=== PATIENT | male | born 1935 | race Caucasian/White ===

== ENCOUNTER 2016-05-09 01:53 | Emergency (ER) | payer OTHER ==
[~2016-05-09] VITALS: Ht 180.3 cm; Wt 98.1 kg
[2016-05-09 01:59] VITALS: BP 158/91; PULSE 56; RESP 16; TEMP 97.8; O2SAT 95
--- NOTE | 2016-05-09 02:43 | PD ---
HPI Chief Complaint: Flank/Kidney Pain Time Seen by Provider: 02:39 Travel History International Travel<30 days: No Contact w/Intl Traveler<30days: No Traveled to known affect area: No History of Present Illness HPI 80-year-old male presents to the emergency department for evaluation of left flank pain since sudden onset at 10 PM. Patient states pain radiates to the left abdomen. Patient states symptoms other same as his kidney stone 25 years ago. Patient's had nausea without vomiting. Patient denies chest pain shortness of breath or generalized abdominal pain. Patient denies any right- sided back pain. The patient has had no fever or chills. Patient does have history of hypertension and dyslipidemia. [facility] Past Medical History Narrative Medical Hypertension dyslipidemia and kidney stones no tobacco use nursing notes reviewed Hx Anticoagulant Therapy: Yes (asa) High Cholesterol: Yes Kidney Stones: Yes Musculoskeletal: Yes (r knee surgery) Tetanus Vaccination: Unknown Influenza Vaccination: Yes Past Surgical History Tonsillectomy: Yes Social History Alcohol Use: Yes (1-2 drinks) Tobacco Use: No Substance Use: No Allergies-Medications (Allergen,Severity, Reaction): Coded Allergies: No Known Allergies (Unverified , 05/09/16) Reported Meds & Prescriptions Reported Meds & Active Scripts Active Zofran Odt (Ondansetron Odt) 4 Mg Tab 4 Mg SL Q6HR PRN Flomax (Tamsulosin HCl) 0.4 Mg Cap 0.4 Mg PO HS Percocet (Oxycodone-Acetaminophen) 5-325 mg Tab 1 Tab PO Q6H PRN Reported Co Q 10 (Coenzyme Q10 (Ubidecarenone)) 100 Mg Cap 100 Cap PO DAILY Fenofibrate 40 Mg Tab 40 Mg PO DAILY Aspirin 81 Mg Tabdr 81 Mg PO DAILY Atorvastatin (Atorvastatin Calcium) 20 Mg Tab 40 Mg PO HS Review of Systems Except as stated in HPI: all other systems reviewed are Neg Physical Exam Narrative GENERAL: Well-developed well-nourished male in no acute distress no respiratory distress SKIN: Warm and dry. HEAD: Normocephalic. EYES: No scleral icterus. No injection or drainage. NECK: Supple, trachea midline. No JVD or lymphadenopathy. CARDIOVASCULAR: Regular rate and rhythm without murmurs, gallops, or rubs. RESPIRATORY: Breath sounds equal bilaterally. No accessory muscle use. GASTROINTESTINAL: Abdomen soft, non-tender, nondistended. MUSCULOSKELETAL: No cyanosis, or edema. BACK: Nontender without obvious deformity. Left-sided CVA tenderness. Data Data Last Documented VS Vital Signs Date Time Temp Pulse Resp B/P Pulse Ox O2 Delivery O2 Flow Rate FiO2 05/09/16 01:59 97.8 56 16 158/91 95 Room Air Orders Complete Blood Count With Diff (05/09/16 02:40) Basic Metabolic Panel (Bmp) (05/09/16 02:40) Urinalysis - C+S If Indicated (05/09/16 02:40) Ct Abd/Pel W/O Iv Contrast (05/09/16 02:40) Ecg Monitoring (05/09/16 02:40) Iv Access Insert/Monitor (05/09/16 02:40) Ondansetron Inj (Zofran Inj) (05/09/16 02:45) Sodium Chloride 0.9% Flush (Ns Flush) (05/09/16 02:45) Sodium Chlor 0.9% 1000 Ml Inj (Ns 1000 M (05/09/16 02:45) Hydromorphone Pf Inj (Dilaudid Pf Inj) (05/09/16 02:45) Tamsulosin (Flomax) (05/09/16 04:00) Labs Laboratory Tests Test 05/09/16 05/09/16 02:40 02:49 Urine Color BROWN Urine Turbidity CLOUDY Urine pH 5.0 Urine Specific [place] 1.027 Urine Protein 30 mg/dL Urine Glucose (UA) NEG mg/dL Urine Ketones NEG mg/dL Urine Occult Blood LARGE Urine Nitrite NEG Urine Bilirubin NEG Urine Leukocyte Esterase NEG Urine RBC 50-99 /hpf Urine WBC 0-2 /hpf Urine Squamous Epithelial 0-5 /hpf Cells Urine Bacteria FEW /hpf Microscopic Urinalysis Comment CULT NOT INDICATED White Blood Count 13.8 TH/MM3 Red Blood Count 5.65 MIL/MM3 Hemoglobin 16.0 GM/DL Hematocrit 50.2 % Mean Corpuscular Volume 89.0 FL Mean Corpuscular Hemoglobin 28.4 PG Mean Corpuscular Hemoglobin 31.9 % Concent Red Cell Distribution Width 15.0 % Platelet Count 252 TH/MM3 Mean Platelet Volume 8.6 FL Neutrophils (%) (Auto) 75.6 % Lymphocytes (%) (Auto) 15.5 % Monocytes (%) (Auto) 7.4 % Eosinophils (%) (Auto) 0.5 % Basophils (%) (Auto) 1.0 % Neutrophils # (Auto) 10.5 TH/MM3 Lymphocytes # (Auto) 2.1 TH/MM3 Monocytes # (Auto) 1.0 TH/MM3 Eosinophils # (Auto) 0.1 TH/MM3 Basophils # (Auto) 0.1 TH/MM3 CBC Comment DIFF FINAL Differential Comment Sodium Level 141 MEQ/L Potassium Level 4.0 MEQ/L Chloride Level 105 MEQ/L Carbon Dioxide Level 25.9 MEQ/L Anion Gap 10 MEQ/L Blood Urea Nitrogen 30 MG/DL Creatinine 1.70 MG/DL Estimat Glomerular Filtration 39 ML/MIN Rate Random Glucose 159 MG/DL Calcium Level 9.2 MG/DL [facility] Medical Decision Making Medical Screen Exam Complete: Yes Emergency Medical Condition: Yes Medical Record Reviewed: Yes Interpretation(s) CT abd/pel: CONCLUSION: 5 mm stone at the left ureteropelvic junction with moderate hydronephrosis. Oli Sauer MD on May 09, 2016 at 3:26 Board Certified Radiologist. This report was verified electronically. Differential Diagnosis Flank pain, renal colic, abdominal aortic aneurysm, dissection, UTI, pyelonephritis, diverticulitis Narrative Course Patient placed on cardiac rehabilitation program director IV access obtained specimens collected and sent for resulting patient administered normal saline 125 cc per hour and Zofran 4 mg IV and Dilaudid 0.5 mg IV; CT imaging study ordered @3:55 AM patient is pain-free is aware of imaging studies consistent with obstructing 5 mm stone on the left no evidence for infection patient will be discharged with prescription for Percocet and Zofran and Flomax first dose of Flomax administered in the emergency department. Patient offered name of on- call urologist and shares the yard he has a urologist Dr. Salvador and he is encouraged to follow-up with his primary urologist and call office in a.m. to schedule appointment Diagnosis Primary Impression: Renal colic on left side Additional Impressions: Ureterolithiasis Renal insufficiency Referrals: Urologist call for appointment Patient Instructions: Narcotic given in the ED, General Instructions Additional Instructions: Strain urine Increase fluid hydration Take medication as prescribed as needed for pain Follow-up with urologist call office in a urologist on-call Dr. Escobedo or your urologist Dr Salvador Return to the emergency department for any concerns or change in condition Med/Other Pt SpecificInfo: Prescription(s) given Scripts Ondansetron Odt (Zofran Odt)4 Mg Tab4 Mg SL Q6HR PRN (Nausea/Vomiting) #10 TAB Ref 0 Prov:Basia Hendricks MD 05/09/16 Tamsulosin (Flomax)0.4 Mg Cap0.4 Mg PO HS #7 CAP Ref 0 Prov:Basia Hendricks MD 05/09/16 Oxycodone-Acetaminophen (Percocet)5-325 mg Tab1 Tab PO Q6H PRN (PAIN) #12 TAB Ref 0 Prov:Basia Hendricks MD 05/09/16 Disposition: 01 DISCHARGE HOME Condition: Stable Basia Hendricks MD May 09, 2016 02:43
[2016-05-09] MEDS ORDERED: HYDROmorphone HCL PF 1 MG/ML VIAL IV PUSH ONE (02:45)
[2016-05-09] MEDS ORDERED: SODIUM CHLOR 0.9% 1000 ML INJ 1,000 ML IV SCH (02:45)
[2016-05-09] MEDS ORDERED: SODIUM CHLORIDE 0.9% FLUSH 5 ML FLUSH IVF PRN (02:45)
[2016-05-09] MEDS ORDERED: ONDANSETRON HCL 4 MG/2 ML VIAL IVP ONE (02:45)
[2016-05-09 02:57] LABS: BLOOD, URINE LARGE (NEG); GLUCOSE,URINE NEG (NEG); KETONE, URINE NEG (NEG); NITRITE,URINE NEG (NEG)
[2016-05-09 02:59] LABS: AUTOMATED NEUTROPHIL # 10.5 TH/MM3 (1.8-7.7); BASOPHIL # 0.1 TH/MM3 (0-0.2); EOSINOPHIL # 0.1 TH/MM3 (0-0.4); EOSINOPHIL % 0.5 % (0.0-4.0); HEMATOCRIT 50.2 % (39.0-51.0); LYMPH % 15.5 % (9.0-44.0); LYMPHOCYTE # 2.1 TH/MM3 (1.0-4.8); MEAN CORPUSCULAR HEMOGLOBIN 28.4 PG (27.0-34.0); MEAN CORPUSCULAR HGB CONC 31.9 % (32.0-36.0); MONO % 7.4 % (0.0-8.0); NEUT % 75.6 % (16.0-70.0); PLATELET COUNT 252 TH/MM3 (150-450); RED BLOOD COUNT 5.65 MIL/MM3 (4.50-5.90); WHITE BLOOD COUNT 13.8 TH/MM3 (4.0-11.0)
[2016-05-09 03:00] VITALS: BP 135/83; PULSE 94; RESP 18; O2SAT 94
[2016-05-09 03:00] LABS: HEMO FLAGS DIFF FINAL
[2016-05-09 03:05] LABS: BACTERIA, URINE FEW /hpf; COMMENT (UR) CULT NOT INDICATED; CULTURE IF INDICATED CULT NOT INDICATED; SQUAMOUS EPITHELIAL CELL URINE 0-5 /hpf (0-5); URINE COLOR BROWN (YELLW/STRAW); WBC, URINE 0-2 /hpf (0-5)
[2016-05-09] MEDS ORDERED: CO Q100C9 PO (03:05)
[2016-05-09] MEDS ORDERED: ATOR20TA15 PO (03:05)
[2016-05-09] MEDS ORDERED: FENO1TAB46 PO (03:05)
[2016-05-09] MEDS ORDERED: ASPI1TAB69 PO (03:05)
[2016-05-09 03:09] LABS: BICARBONATE 25.9 MEQ/L (21.0-32.0)
[2016-05-09 03:19] VITALS: RESP 18
--- NOTE | 2016-05-09 03:31 | RADHPO ---
EXAM DATE/TIME: 05/09/2016 02:50 [place] COMPARISON: No previous studies available for comparison. INDICATIONS : Left flank pain today. ORAL CONTRAST: No oral contrast ingested. RADIATION DOSE: 27.62 CTDIvol (mGy) MEDICAL HISTORY : Renal calculi. SURGICAL HISTORY : None. ENCOUNTER: Initial ACUITY: 1 day PAIN SCALE: 4/10 LOCATION: Left flank TECHNIQUE: Volumetric scanning of the abdomen and pelvis was performed. Using automated exposure control and ad justment of the mA and/or kV according to patient size, radiation dose was kept as low as reasonably achievable to obtain optimal diagnostic quality images. FINDINGS: LOWER LUNGS: Minimal scarring or atelectasis in the lung bases. LIVER: Small low densities in the left lobe are likely cysts or hemangiomata. Single calcified gallstone not ed. SPLEEN: Normal size without lesion. PANCREAS: Within normal limits. KIDNEYS: The left kidney is notable for mild swelling, moderate hydronephrosis proximal to a 5 mm stone at the ureteropelvic junction. Mild perinephric fatty tissue edema and fluid. Miniscule nonobstructing ston es in the lower pole collecting system of left kidney. Right kidney is unremarkable. ADRENAL GLANDS: Within normal limits. VASCULAR: There is no aortic aneurysm. BOWEL/MESENTERY: The stomach, small bowel, and colon demonstrate no acute abnormality. There is no free intraperitone al air or fluid. ABDOMINAL WALL: Within normal limits. RETROPERITONEUM: There is no lymphadenopathy. BLADDER: No wall thickening or mass. REPRODUCTIVE: Within normal limits. INGUINAL: There is no lymphadenopathy or hernia. MUSCULOSKELETAL: Within normal limits for patient age. CONCLUSION: 5 mm stone at the left ureteropelvic junction with moderate hydronephrosis. Oli Sauer MD on May 09, 2016 at 3:26 Board Certified Radiologist. This report was verified electronically.
[2016-05-09] MEDS ORDERED: ZOFR4TAB3 SL (03:51)
[2016-05-09] MEDS ORDERED: TAMS5CAP PO (03:51)
[2016-05-09] MEDS ORDERED: PERC5TAB12 PO (03:51)
[2016-05-09] MEDS ORDERED: TAMSULOSIN HCL 0.4 MG CAP PO ONE (04:00)
[2016-05-09 04:22] VITALS: BP 150/80
== END 2016-05-09 04:26 | disposition home or self-care (01) ==
LOC: PHED 01:53
DX: N20.1 Calculus of ureter (principal); N28.9 Disorder of kidney and ureter, unspecified; E78.00 Pure hypercholesterolemia, unspecified; I10 Essential (primary) hypertension; Z87.442 Personal history of urinary calculi
CPT/HCPCS: 74176; 80048; 81001; 85025; 96361; 96374; 96375; 99284; J1170; J2405; J7030

== ENCOUNTER 2018-03-12 07:00 | Observation (INO) ==
--- NOTE | 2018-03-12 07:58 | ED ---
HPI General Chief complaint: Weakness Stated complaint: Pain Time Seen by Provider: 03/12/18 07:39 Source: patient and family Mode of arrival: ambulatory Limitations: no limitations History of Present Illness HPI Narrative: Patient is an 82-year-old male with no past medical history, presents to emergency room with complaints of weakness. Patient reports that for the past few weeks, he has had generalized body aches and muscle weakness. Patient was seen in the emergency room on March 04, 2018 and was told that he had internal shingles to his abdomen. Patient was prescribed Valtrex and was discharged home. Patient reports that since he has been home, he has been compliant with his medications but had has not helped him with his symptoms. Patient reports that all of his muscles feel weak and are crampy. Patient reports that it is even hard for him to ambulate due to this weakness. Patient reports that one month ago, he was up and running around all over the place, reports that now he cannot do that. Patient denies any headache or dizziness, denies any vision changes, denies any chest pain or shortness of breath or even abdominal pain. Patient denies any fevers or chills. Patient reports that his whole body just feels weak and he cannot describe his symptoms other than that. Denies any fall or trauma to the head or neck. Denies any recent travels or trips, no sick contacts at home. Patient reports that his muscle weakness feels similar to when he was taking statins, reports that he is no longer on statins as he has lost over 30 pounds and is currently not on any medications due to his significant weight loss and better eating. Patient with no other complaints at this time. Related Data Home Medications Medication Instructions Recorded Confirmed hydrocodone-acetaminophen 1 tab PO Q6H 03/12/18 03/12/18 Previous Rx's Medication Instructions Recorded valacyclovir [Valtrex] 1,000 mg PO BID 10 Days #20 tab 03/04/18 Allergies Allergy/AdvReac Type Severity Reaction Status Date / Time No Known Allergies Allergy Verified 03/12/18 07:16 Review of Systems ROS: all other systems reviewed are negative [facility] Medical History Medical History Bladder cancer (Acute) Surgical History Surgical History History of ankle surgery (Acute) Hx of knee surgery (Acute) Hx of tonsillectomy (Acute) Social History Social History (Reviewed 03/12/18 @ 08:01 by Sue Roth Substance History: No History of Abuse Second Hand Smoke Exposure: No Smoking Status: Never smoker How Often Do You Have a Drink Containing Alcohol: Never Recent Travel in [facility] within the Last 8 Weeks: No Recent Out of Country Travel within the Last 8 Weeks: No Immunization History Tetanus Immunization: >5 Years Exam Narrative Exam Narrative: GENERAL: Mild distress SKIN: Focused skin assessment warm/dry. HEAD: Atraumatic. Normocephalic. EYES: Pupils equal and round. No scleral icterus. No injection or drainage. ENT: No nasal bleeding or discharge. Mucous membranes pink and moist. NECK: Trachea midline. No JVD. CARDIOVASCULAR: Regular rate and rhythm. No murmur appreciated. RESPIRATORY: No accessory muscle use. Clear to auscultation. Breath sounds equal bilaterally. GASTROINTESTINAL: Abdomen soft, non-tender, nondistended. Hepatic and splenic margins not palpable. MUSCULOSKELETAL: No obvious deformities. No clubbing. No cyanosis. No edema. NEUROLOGICAL: Awake and alert. No obvious cranial nerve deficits. Patient with weakness to the upper as well as lower extremities bilaterally. Normal speech. PSYCHIATRIC: Appropriate mood and affect; insight and judgment normal. Course Initial Documented Vital Signs Temperature 97.9 F 03/12/18 07:05 Pulse Rate 109 H 03/12/18 07:05 Respiratory Rate 20 03/12/18 07:05 Blood Pressure 129/80 03/12/18 07:05 Pulse Oximetry 94 L 03/12/18 07:05 Last Documented Vital Signs Temperature 97.9 F 03/12/18 10:38 Pulse Rate 96 H 03/12/18 10:38 Respiratory Rate 20 03/12/18 10:38 Blood Pressure 162/91 H 03/12/18 10:38 Pulse Oximetry 96 03/12/18 10:38 Medical Decision Making MDM Narrative Medical decision making narrative: During the course of the patients emergency department visit, the patients history, examination, and differential diagnosis were reviewed with the patient. The patient was placed on a lift manager with oximetry and frequent blood pressure monitoring. The patient had an IV access obtained and blood work sent for analysis. The patients laboratory studies were reviewed and remarkable for: WBC 13.6, hemoglobin 14.7, hematocrit 43.6, platelets 320 Sodium 137, potassium 4.3, BUN 17, creatinine 1.07, glucose 94 CT of the head with no acute intracranial abnormalities, mild atrophy. Patient's labs and studies have been reviewed, I do not have a source as to why patient is so weak. Patient's reports that patient is normally very active , she is concerned as he is weak throughout his who body Case reviewed with Dr. Keller who will admit for observation and have neuro consult Medical Screen Exam Complete: Yes Emergency Medical Condition: Yes Medical Records Medical records reviewed: Yes I reviewed the patient's medical records. Lab Data Result diagrams: 03/12/18 08:15 03/12/18 08:15 Lab Results 03/12/18 03/12/18 03/12/18 Range/Units 08:15 08:15 08:15 WBC 13.7 H (4.0-11.0) th/mm3 RBC 4.71 (4.50-5.90) mil/mm3 Hgb 14.7 (13.0-17.0) gm/dL Hct 43.6 (39.0-51.0) % MCV 92.7 (80.0-100.0) fL MCH 31.2 (27.0-34.0) pg MCHC 33.6 (32.0-36.0) % RDW 15.6 (11.6-17.2) % Plt Count 320 (150-450) th/mm3 MPV 7.5 (7.0-11.0) fL Neut % (Auto) 74.7 H (16.0-70.0) % Lymph % (Auto) 12.3 (9.0-44.0) % [place] % (Auto) 12.4 H (0.0-8.0) % Eos % (Auto) 0.3 (0.0-4.0) % Baso % (Auto) 0.3 (0.0-2.0) % Neut # (Auto) 10.2 H (1.8-7.7) th/mm3 Lymph # (Auto) 1.7 (1.0-4.8) th/mm3 [place] # (Auto) 1.7 H (0.0-0.9) th/mm3 Eos # (Auto) 0.0 (0.0-0.4) th/mm3 Baso # (Auto) 0.0 (0.0-0.2) th/mm3 WBC Differential . Differential Comment Auto diff final Sodium 137 (136-145) meq/L Potassium 4.3 (3.5-5.1) meq/L Chloride 102 (98-107) meq/L Carbon Dioxide 26.4 (21.0-32.0) meq/L Anion Gap 9 (5-15) meq/L BUN 17 (7-18) mg/dL Creatinine 1.07 (0.60-1.30) mg/dL Estimated GFR 66 L (>89) mL/min Random Glucose 94 (74-106) mg/dL Lactic Acid (0.4-2.0) mmol/L Calcium 8.9 (8.5-10.1) mg/dL Magnesium 2.3 (1.5-2.5) mg/dL Total Bilirubin 0.6 (0.2-1.0) mg/dL AST 21 (15-37) U/L ALT 41 (12-78) U/L Alkaline Phosphatase 81 (45-117) U/L Total Creatine Kinase 83 (39-308) U/L Troponin I Less than 0.02 L (0.02-0.05) ng/mL B-Natriuretic Peptide 28 (0-100) pg/mL Total Protein 7.6 (6.4-8.2) g/dL Albumin 3.5 (3.4-5.0) g/dL Urine Color (Yellw/Straw) Urine Clarity (Clear) Urine pH (5.0-8.5) Ur Specific [place] (1.002-1.035) Urine Protein (Neg-Trace) mg/dL Urine Glucose (UA) (Negative) mg/dL Urine Ketones (Negative) mg/dL Urine Occult Blood (Negative) Urine Nitrate (Negative) Urine Bilirubin (Negative) Urine Urobilinogen (Less than 2) mg/dL Ur Leukocyte Esterase (Negative) Urine RBC (0-3) /hpf Urine WBC (0-5) /hpf Hyaline Casts (0-3) /lpf Urine Mucus (Occasional) /lpf Micro UA Comment Ur Microscopic Review Urine Culture Comments 03/12/18 03/12/18 Range/Units 08:15 10:00 WBC (4.0-11.0) th/mm3 RBC (4.50-5.90) mil/mm3 Hgb (13.0-17.0) gm/dL Hct (39.0-51.0) % MCV (80.0-100.0) fL MCH (27.0-34.0) pg MCHC (32.0-36.0) % RDW (11.6-17.2) % Plt Count (150-450) th/mm3 MPV (7.0-11.0) fL Neut % (Auto) (16.0-70.0) % Lymph % (Auto) (9.0-44.0) % [place] % (Auto) (0.0-8.0) % Eos % (Auto) (0.0-4.0) % Baso % (Auto) (0.0-2.0) % Neut # (Auto) (1.8-7.7) th/mm3 Lymph # (Auto) (1.0-4.8) th/mm3 [place] # (Auto) (0.0-0.9) th/mm3 Eos # (Auto) (0.0-0.4) th/mm3 Baso # (Auto) (0.0-0.2) th/mm3 WBC Differential Differential Comment Sodium (136-145) meq/L Potassium (3.5-5.1) meq/L Chloride (98-107) meq/L Carbon Dioxide (21.0-32.0) meq/L Anion Gap (5-15) meq/L BUN (7-18) mg/dL Creatinine (0.60-1.30) mg/dL Estimated GFR (>89) mL/min Random Glucose (74-106) mg/dL Lactic Acid 2.3 H (0.4-2.0) mmol/L Calcium (8.5-10.1) mg/dL Magnesium (1.5-2.5) mg/dL Total Bilirubin (0.2-1.0) mg/dL AST (15-37) U/L ALT (12-78) U/L Alkaline Phosphatase (45-117) U/L Total Creatine Kinase (39-308) U/L Troponin I (0.02-0.05) ng/mL B-Natriuretic Peptide (0-100) pg/mL Total Protein (6.4-8.2) g/dL Albumin (3.4-5.0) g/dL Urine Color Yellow (Yellw/Straw) Urine Clarity Clear (Clear) Urine pH 6.0 (5.0-8.5) Ur Specific [place] 1.015 (1.002-1.035) Urine Protein Negative (Neg-Trace) mg/dL Urine Glucose (UA) Negative (Negative) mg/dL Urine Ketones Negative (Negative) mg/dL Urine Occult Blood Negative (Negative) Urine Nitrate Negative (Negative) Urine Bilirubin Negative (Negative) Urine Urobilinogen Less than 2 (Less than 2) mg/dL Ur Leukocyte Esterase Negative (Negative) Urine RBC Less than 1 (0-3) /hpf Urine WBC Less than 1 (0-5) /hpf Hyaline Casts 9 (0-3) /lpf Urine Mucus Few H (Occasional) /lpf Micro UA Comment Culture not ind Ur Microscopic Review Not Reportable Urine Culture Comments Culture not ind Imaging Data Radiologist's impression: Chest X-Ray 03/12/18 07:56 CONCLUSION: No acute cardiopulmonary process. Head CT 03/12/18 07:56 CONCLUSION: 1. No acute intracranial abnormality. 2. Mild atrophy. . ECG Data EKG Prior to Arrival: No Attestation: I personally reviewed and interpreted this ECG as follows: Interpretation: EKG at 0828: NSR at 0828: NSR at 92bpm, qt/qtc: 337/387, no acute st or t wave changes Discharge Plan Discharge Disposition Patient Disposition: 30 Still Patient Discharge Condition Condition: Stable Discharge Details Diagnosis: Generalized weakness Physicians Team ED Provider: Sue Harris Primary Care Provider: Primary Care Anne Fry Rxs /Orders / Referrals /Forms Prescriptions: No Action valacyclovir [Valtrex] 1 gram tablet 1,000 mg PO BID 10 Days Qty: 20 RF: 0 hydrocodone-acetaminophen 5-325 mg Tablet 1 tab PO Q6H RF: 0 Status ED Status: With Doctor
--- NOTE | 2018-03-12 08:22 | CT ---
EXAM DATE: 03/12/2018 8:15 AM EST AGE/SEX: 82 years / Male INDICATIONS: Patient complains of general weakness. CLINICAL DATA: This is the patient's initial encounter. Patient reports that signs and symptoms have been present for 1 day and indicates a pain score of 0/10. MEDICAL/SURGICAL HISTORY: Renal calculi. Carcinoma, bladder. None. RADIATION DOSE: 56.35 CTDI (mGy) COMPARISON: No prior exams available for comparison. TECHNIQUE: CT of the head without contrast. Using automated exposure control and adjustment of the mA and/or kV according to patient size, radiation dose was kept as low as reasonably achievable to ob tain optimal diagnostic quality images. DICOM format image data is available electronically for revi ew and comparison. FINDINGS: Cerebrum: The ventricles are normal for age. The cortical sulci are mildly widened. No evidence of m idline shift, mass lesion, hemorrhage or acute infarction. No extraaxial fluid collections are seen. Posterior Fossa: The cerebellum and brainstem are intact. The 4th ventricle is midline. The cerebe llopontine angle is unremarkable. Extracranial: The visualized portion of the orbits is intact. Skull: The calvaria is intact. No evidence of skull fracture. CONCLUSION: 1. No acute intracranial abnormality. 2. Mild atrophy. . Electronically signed by: Oli Ortiz MD 03/12/2018 8:21 AM EST
[2018-03-12 08:49] LABS: Baso % (Auto) 0.3 % (0.0-2.0); Eos % (Auto) 0.3 % (0.0-4.0); Hematocrit 43.6 % (39.0-51.0); Hemoglobin 14.7 gm/dL (13.0-17.0); Lymph # (Auto) 1.7 th/mm3 (1.0-4.8); Lymph % (Auto) 12.3 % (9.0-44.0); Mean Corpuscular HGB Conc 33.6 % (32.0-36.0); Mean Corpuscular Hemoglobin 31.2 pg (27.0-34.0); Mean Corpuscular Volume 92.7 fL (80.0-100.0); Mean Platelet Volume 7.5 fL (7.0-11.0); Mono # (Auto) 1.7 th/mm3 (0.0-0.9); Mono % (Auto) 12.4 % (0.0-8.0); Neut # (Auto) 10.2 th/mm3 (1.8-7.7); Neut % (Auto) 74.7 % (16.0-70.0); Platelet Count 320 th/mm3 (150-450); Red Blood Count 4.71 mil/mm3 (4.50-5.90); Red Cell Distribution Width 15.6 % (11.6-17.2); White Blood Count 13.7 th/mm3 (4.0-11.0)
[2018-03-12 09:10] LABS: Albumin 3.5 g/dL (3.4-5.0); Anion Gap 9 meq/L (5-15); Aspartate Aminotransferase 21 U/L (15-37); Blood Urea Nitrogen 17 mg/dL (7-18); Calcium 8.9 mg/dL (8.5-10.1); Carbon Dioxide 26.4 meq/L (21.0-32.0); Chloride 102 meq/L (98-107); Glomerular Filtration Rate 66 mL/min (>89); Glucose,Random 94 mg/dL (74-106); Magnesium 2.3 mg/dL (1.5-2.5); Potassium 4.3 meq/L (3.5-5.1); Sodium 137 meq/L (136-145)
[2018-03-12 09:11] LABS: Alanine Aminotransferase 41 U/L (12-78)
[2018-03-12 09:15] LABS: Alkaline Phosphatase 81 U/L (45-117); Total Protein 7.6 g/dL (6.4-8.2)
[2018-03-12] MEDS ORDERED: Sod Chloride 0.9% Inj 1,000 ML IV.SIG SCH (09:30)
[2018-03-12 09:31] LABS: Creatine Kinase 83 U/L (39-308)
--- NOTE | 2018-03-12 10:02 | XR ---
EXAM DATE: 03/12/2018 9:56 AM EST AGE/SEX: 82 years / Male INDICATIONS: Weakness. Short of breath. CLINICAL DATA: This is the patient's subsequent encounter. Patient reports that signs and symptoms h ave been present for 3 days and indicates a pain score of 4/10. MEDICAL/SURGICAL HISTORY: None. None. COMPARISON: [facility], CHEST 1V SINGLE AP, 03/04/2018. . FINDINGS: A single AP view of the chest demonstrates the lungs to be symmetrically aerated without evidence of mass, infiltrate or effusion. The cardiomediastinal contours are unremarkable. Osseous structures a re intact. CONCLUSION: No acute cardiopulmonary process. Electronically signed by: Oli Ortiz MD 03/12/2018 10:00 AM EST
[2018-03-12 10:17] LABS: Bilirubin,Urine Negative (Negative); Clarity,Urine Clear (Clear); Color,Urine Yellow (Yellw/Straw); Glucose,Urine (UA) Negative (Negative); Hyaline Casts,Urine 9 /lpf (0-3); Leukocyte Esterase,Urine Negative (Negative); Mucus,Urine Few /lpf (Occasional); Nitrite,Urine Negative (Negative); Specific Gravity,Urine 1.015 (1.002-1.035)
[2018-03-12] MEDS ORDERED: Acetaminophen 325 MG Tablet PO PRN (11:20)
[2018-03-12] MEDS ORDERED: Bisacodyl 10 MG Supp RECTAL PRN (11:20)
[2018-03-12] MEDS ORDERED: Gadobutrol PF 10 MMOL/10 ML Vial (for RAD) IV.SIG ONE (12:36)
--- NOTE | 2018-03-12 13:02 | MR ---
EXAM DATE: 03/12/2018 12:54 PM EST AGE/SEX: 82 years / Male INDICATIONS: Unsteady gait. CLINICAL DATA: This is the patient's initial encounter. Patient reports that signs and symptoms have been present for 1 week and indicates a pain score of 5/10. MEDICAL/SURGICAL HISTORY: Carcinoma, bladder. Tonsillectomy. Right knee sx, and Left ankle sx. COMPARISON: [facility], CT HEAD W/O CONTRAST, 03/12/2018. . TECHNIQUE: Multiplanar, multisequence examination of the brain was performed without and with 8 ml Ga davist (gadobutrol) contrast as a single exam dose. FINDINGS: Cerebrum: The ventricles are normal for age. The cortical sulci are mildly widened. No evidence of midline shift, mass lesion, hemorrhage or acute infarction. No extraaxial fluid collections are seen . The pituitary gland and suprasellar cistern are normal in configuration. White Matter: There are a few scattered punctate areas of increased signal in the cerebral white mat ter. Posterior Fossa: The cerebellum and brainstem are intact. The 4th ventricle is midline. The cerebel lopontine angle is unremarkable. The cerebellar tonsils are normal in position. Diffusion Imaging: No focal areas of restricted diffusion are seen. No evidence of acute infarction . Extracranial: The visualized portions of the orbits and paranasal sinuses are unremarkable. Post Contrast: No abnormal areas of parenchymal or dural enhancement. No evidence of blood-brain ba rrier breakdown. CONCLUSION: 1. No acute intracranial abnormality. 2. Mild atrophy. 3. Minimal scattered punctate areas of increased signal in the cerebral white matter likely represen t small foci of demyelination. Electronically signed by: Oli Ortiz MD 03/12/2018 1:00 PM EST
[2018-03-12 17:43] LABS: Free T4 (Free Thyroxine) 1.3 ng/dL (0.76-1.46); Thyroid Stimulating Hormone 1.05 uIU/mL (0.358-3.740)
--- NOTE | 2018-03-12 18:02 | P.HP ---
History of Present Illness Service: Hospitalist Primary Care Physician: No Primary Care Physician Chief Complaint: Weakness History of Present Illness: Patient is an 82-year-old male with no significant past medical history. He presents to the emergency room today with a complaint of increasing weakness and generalized pain. He reports that he has had generalized body aches and muscle weakness for several weeks. He was seen in the emergency room 03/04/18 and diagnosed with shingles and sent home with Valtrex. Patient reports that he has been taking the medication since getting home however he has had increasing muscle pain and weakness since then. He has also tried oxycodone however it does not improve the pain. Tells me that many years ago he was put on a statin and that he had similar aches and pains which resolved after stopping the statin. He no longer takes statins as he deliberately lost over 30 pounds and improved his diet making them unnecessary. No chest pain or shortness of breath. No fever or chills. No nausea vomiting or diarrhea. He has had normal appetite. Denies any recent travel. Denies any known tick bites. No history of autoimmune disease. No falls or head injury. Prior to current weakness he had normal gait and was quite vigorous per his report. - Diagnosis (1) Joint pain (2) Generalized weakness Review of Systems All other systems reviewed negative except as stated in HPI PMFSH - History History Provided By: Patient - Medical History Medical History: Medical History (Last Reviewed 03/12/18 @ 17:44 by NATHANIEL Luna) Bladder cancer - Surgical History Surgical History: Surgical History (Last Reviewed 03/12/18 @ 17:44 by NATHANIEL Luna) History of ankle surgery Hx of knee surgery Hx of tonsillectomy - Family History Family History: Family History (Last Updated 03/12/18 @ 17:45 by NATHANIEL Luna) Other Family history non-contributory - Social History I have reviewed the patient's Social History: Yes - Tobacco History Second Hand Smoke Exposure: No Tobacco Use In Past 30 Days: No (quit 40 years ago) Smoking Status: Former smoker - Alcohol History How Often Do You Have a Drink Containing Alcohol: 4 or more times a week - Substance Use History Substance History: No History of Abuse - Travel History Recent Travel in the [place] Within the Last 8 Weeks: No Recent Travel Out of the Country Within the Last 8 Weeks: No - Immunization History Tetanus Immunization: >5 Years Medications and Allergies Active Medications: Active Medications Acetaminophen (Tylenol) 650 mg PO Q4H PRN PRN Reason: Temp > 100.4 Hydrocodone Bitart/Acetaminophen ([place] 5/325) 1 tab PO Q6H [facility] Al Hydroxide/Mg Hydroxide (Milk Of Magnesia Liq) 30 ml PO Q12H PRN PRN Reason: Mild Constipation Bisacodyl (Dulcolax Supp) 10 mg RECTAL DAILY PRN PRN Reason: SEVERE CONSITIPATION Lactulose (Lactulose Liq) 30 ml PO DAILY PRN PRN Reason: SEVERE CONSITIPATION Ondansetron HCl (Zofran Inj) 4 mg IV.PUSH Q6H PRN PRN Reason: NAUSEA OR VOMITING Sennosides (Senokot) 17.2 mg PO Q12H PRN PRN Reason: Moderate Constipation Sodium Chloride (Ns Flush) 2 ml IV.FLUSH PRN PRN PRN Reason: FLUSH AFTER USING IV ACCESS Last Admin: 03/12/18 08:25 Dose: 2 ml Valacyclovir HCl (Valtrex) 1,000 mg PO BID [facility] Allergies Allergy/AdvReac Type Severity Reaction Status Date / Time No Known Allergies Allergy Verified 03/12/18 07:16 Home Medications Medication Instructions Recorded Confirmed Type hydrocodone-acetaminophen 1 tab PO Q6H 03/12/18 03/12/18 History Exam Vital signs: Vital Signs 03/12/18 07:05 03/12/18 07:56 03/12/18 10:38 Temperature 97.9 F 97.8 F 97.9 F Pulse Rate 109 H 93 H 96 H Respiratory Rate 20 17 20 Blood Pressure 129/80 142/84 H 162/91 H Pulse Oximetry 94 L 98 96 03/12/18 13:00 03/12/18 15:16 Temperature 97.8 F 98.5 F Pulse Rate 86 100 H Respiratory Rate 16 18 Blood Pressure 124/77 153/79 H Pulse Oximetry 99 95 Intake & Output 03/11/18 03/12/18 03/12/18 18:59 06:59 18:59 Intake Total 1000 / 1000 Balance 1000 / 1000 Weight 81.647 kg Intake: IV 1000 / 1000 NS Inj 1,000 ML @ 1000 mls/hr 1000 / 1000 IV.SIG BOLUS [facility] Rx#:[id number] Other: Weight On Admission 81.647 kg Narrative: GENERAL: Well-nourished, well-developed adult male in no obvious distress. SKIN: Warm and dry. HEAD: Atraumatic. Normocephalic. CARDIOVASCULAR: Regular rate and rhythm. RESPIRATORY: No accessory muscle use. Clear to auscultation. Breath sounds equal bilaterally. GASTROINTESTINAL: Abdomen soft, non-tender, non-distended. Positive bowel sounds. MUSCULOSKELETAL: Extremities without clubbing, cyanosis, or edema. No obvious deformities. NEUROLOGICAL: Awake and alert. No obvious cranial nerve deficits. 5/5 bilateral lower extremities. 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 No tremor. normal speech. PSYCHIATRIC: Appropriate mood and affect; insight and judgment good. Results - Labs CBC & Chem 7: 03/12/18 08:15 03/12/18 08:15 Labs: Laboratory Results - last 24 hr 03/12/18 03/12/18 03/12/18 08:15 08:15 08:15 WBC 13.7 H RBC 4.71 Hgb 14.7 Hct 43.6 MCV 92.7 MCH 31.2 MCHC 33.6 RDW 15.6 Plt Count 320 MPV 7.5 Neut % (Auto) 74.7 H Lymph % (Auto) 12.3 [place] % (Auto) 12.4 H Eos % (Auto) 0.3 Baso % (Auto) 0.3 Neut # (Auto) 10.2 H Lymph # (Auto) 1.7 [place] # (Auto) 1.7 H Eos # (Auto) 0.0 Baso # (Auto) 0.0 WBC Differential . Differential Comment Auto diff final Sodium 137 Potassium 4.3 Chloride 102 Carbon Dioxide 26.4 Anion Gap 9 BUN 17 Creatinine 1.07 Estimated GFR 66 L Random Glucose 94 Lactic Acid Calcium 8.9 Magnesium 2.3 Total Bilirubin 0.6 AST 21 ALT 41 Alkaline Phosphatase 81 Total Creatine Kinase 83 Troponin I Less than 0.02 L B-Natriuretic Peptide 28 Total Protein 7.6 Albumin 3.5 Vitamin B12 TSH Free T4 Urine Color Urine Clarity Urine pH Ur Specific [place] Urine Protein Urine Glucose (UA) Urine Ketones Urine Occult Blood Urine Nitrate Urine Bilirubin Urine Urobilinogen Ur Leukocyte Esterase Urine RBC Urine WBC Hyaline Casts Urine Mucus Micro UA Comment Ur Microscopic Review Urine Culture Comments 03/12/18 03/12/18 03/12/18 08:15 08:15 10:00 WBC RBC Hgb Hct MCV MCH MCHC RDW Plt Count MPV Neut % (Auto) Lymph % (Auto) [place] % (Auto) Eos % (Auto) Baso % (Auto) Neut # (Auto) Lymph # (Auto) [place] # (Auto) Eos # (Auto) Baso # (Auto) WBC Differential Differential Comment Sodium Potassium Chloride Carbon Dioxide Anion Gap BUN Creatinine Estimated GFR Random Glucose Lactic Acid 2.3 H Calcium Magnesium Total Bilirubin AST ALT Alkaline Phosphatase Total Creatine Kinase Troponin I B-Natriuretic Peptide Total Protein Albumin Vitamin B12 330 TSH 1.050 Free T4 1.30 Urine Color Yellow Urine Clarity Clear Urine pH 6.0 Ur Specific [place] 1.015 Urine Protein Negative Urine Glucose (UA) Negative Urine Ketones Negative Urine Occult Blood Negative Urine Nitrate Negative Urine Bilirubin Negative Urine Urobilinogen Less than 2 Ur Leukocyte Esterase Negative Urine RBC Less than 1 Urine WBC Less than 1 Hyaline Casts 9 Urine Mucus Few H Micro UA Comment Culture not ind Ur Microscopic Review Not Reportable Urine Culture Comments Culture not ind - Imaging Impressions Head MRI 03/12/18 00:00 CONCLUSION: 1. No acute intracranial abnormality. 2. Mild atrophy. 3. Minimal scattered punctate areas of increased signal in the cerebral white matter likely represent small foci of demyelination. Chest X-Ray 03/12/18 07:56 CONCLUSION: No acute cardiopulmonary process. Head CT 03/12/18 07:56 CONCLUSION: 1. No acute intracranial abnormality. 2. Mild atrophy. . Caprini VTE Risk Assessment Caprini VTE Risk Assessment: No/Low Risk (score <= 1) Caprini Risk Assessment Model: Point Value = 1 Point Value = 2 Point Value = 3 Point Value = 5 Age 41-60 Minor surgery BMI > 25 kg/m2 Swollen legs Varicose veins or History of unexplained or recurrent spontaneous Oral contraceptives or hormone replacement Sepsis (< 1 month) Serious lung disease, including pneumonia (< 1 month) Abnormal pulmonary function Acute myocardial infarction Congestive heart failure (< 1 month) History of inflammatory bowel disease Medical patient at bed rest Age 61-74 Arthroscopic surgery Major open surgery (> 45 min) Laparoscopic surgery (> 45 min) Malignancy Confined to bed (> 72 hours) Immobilizing plaster cast Central venous access Age >= 75 History of VTE Family history of VTE Factor V Leiden Prothrombin [id number] Lupus anticoagulant Anticardiolipin antibodies Elevated serum homocysteine Heparin-induced thrombocytopenia Other congenital or acquired thrombophilia Stroke (< 1 month) Elective arthroplasty Hip, pelvis, or leg fracture Acute spinal cord injury (< 1 month) Prophylaxis Regimen: Total Risk Factor Score Risk Level Prophylaxis Regimen 0-1 Low Early ambulation 2 Moderate Order ONE of the following: *Sequential Compression Device (SCD) *Heparin 5000 units SQ BID 3-4 Higher Order ONE of the following medications: *Heparin 5000 units SQ TID *Enoxaparin/Lovenox 40 mg SQ daily (WT < 150 kg, CrCl > 30 mL/min) *Enoxaparin/Lovenox 30 mg SQ daily (WT < 150 kg, CrCl > 10-29 mL/min) *Enoxaparin/Lovenox 30 mg SQ BID (WT < 150 kg, CrCl > 30 mL/min) AND/OR *Sequential Compression Device (SCD) 5 or more Highest Order ONE of the following medications: *Heparin 5000 units SQ TID (Preferred with Epidurals) *Enoxaparin/Lovenox 40 mg SQ daily (WT < 150 kg, CrCl > 30 mL/min) *Enoxaparin/Lovenox 30 mg SQ daily (WT < 150 kg, CrCl > 10-29 mL/min) *Enoxaparin/Lovenox 30 mg SQ BID (WT < 150 kg, CrCl > 30 mL/min) AND *Sequential Compression Device (SCD) Assessment and Plan - Assessment (1) Joint pain Code(s): M25.50 - Pain in unspecified joint Status: Acute (2) Generalized weakness Code(s): R53.1 - Weakness Status: Acute - Plan Patient is an 82-year-old male with no significant past medical history. He presents to the emergency room today with a complaint of increasing weakness and generalized pain. Generalized weakness and pain with Unstable gait -Labs grossly normal except for WBC 13.7; cultures pending; afebrile; flu neg -MRI brain ordered -Consult neurology; appreciate assistance -PT consult Shingles -Continue valacyclovir -No lesions found -isolation not indicated DVT prophylaxis: SCDs Discharge planning: Likely home; appreciate PT recommendations Discussed with: Patient, nurse, Dr. Noble
[2018-03-12] MEDS ORDERED: valACYclovir 500 MG Tab PO SCH (21:00)
--- NOTE | 2018-03-12 21:04 | MB ---
cc: Wesley Urbano MD DATE: 03/12/2018 HISTORY OF PRESENT ILLNESS: An 82-year-old right-handed man with bladder cancer in the . Otherwise, he is very healthy. He does not take an aspirin a day or any blood thinners. He had a reaction to statins with achiness all over years ago, but does not take it anymore, and for the last 3 weeks, he has had what he thought was muscle pain, but really sounds more like joint pain that has been progressive. He had 6 months of a macular rash throughout his abdomen, but was bitten by any bugs or ticks. Somebody said he might have shingles and he was given Valtrex in the ER. REVIEW OF SYSTEMS: He denies any hypertension, diabetes, hypercholesterolemia, MO, CABG, cardiac arrhythmia, atrial fibrillation, Coumadin, renal, hepatic or pulmonary disease, thyroid disease, lupus, ulcer, seizure or stroke. SOCIAL HISTORY: Nonsmoker. He has 1 drink a day. He lives with his . FAMILY HISTORY: Negative for cancer, seizure or stroke. MEDICATIONS AT HOME: 1. Hydrocodone. 2. Valtrex. PHYSICAL EXAMINATION: VITAL SIGNS: Afebrile, 100, 18, 153/79. NECK: There are no carotid bruits. HEART: Regular rhythm. I do not detect a murmur. MUSCULOSKELETAL: His muscles are not tender to palpation throughout. NEUROLOGIC: Pupils are equal. Visual moreno are full. Extraocular movements intact without nystagmus. Face is symmetric with normal sensation. Tongue is midline. There is no drift. He has normal strength in the upper and lower extremities bilaterally. DTRs are trace to absent throughout. Toes are downgoing bilaterally. Pinprick is intact throughout. There is no ankle clonus. He is not ataxic on [id number]. He is able to stand with minimal assist without using his arms off the bed and he can stand on his toes, although he bends his knees a little bit to do that. His Romberg is negative. He has had no falls. LABORATORY DATA: CBC: White count is 13.7, otherwise normal. UA is negative. Basic metabolic profile is normal. Calcium, magnesium, LFTs, CPK, troponin, albumin, total protein, B12, thyroid all normal. He had an MRI of the brain which was normal and a CAT scan of the brain also negative. He had a chest x-ray that was normal. IMPRESSION: He is not actually weak per se, nor does this look like shingles. It is more of an arthralgia and we will check a rheumatoid factor, sedimentation rate, LOU, CRP. We might try him on some steroids depending on what the labs look like. We can check a Lyme titer on him, but the rash is not the usual bull's-eye rash. Overall, I thought he looked well neurologically. I think he will feel better with steroids. I will be following him with you in the hospital. Overall, this sounds like more arthralgias and rheumatological. Polymyalgia rheumatica could be considered. MD RYAN Sargent/pavel , 08:46 PM , 08:52 PM
[2018-03-12] MEDS: Sod Chloride 0.9% Inj 1,000 ML IV.CONT SCH (21:08)
--- NOTE | 2018-03-12 22:27 | ECG ---
Date Performed: 03/12/2018 Time Performed: 08:28:22 PTAGE: 82 years EKG: Sinus rhythm POSSIBLE INFERIOR MYOCARDIAL INFARCTION BORDERLINE ECG NO PREVIOUS TRACING DOCTOR: Viktor Cartwright Interpretating Date/Time 03/12/2018 22:26:32
[2018-03-13] MEDS ORDERED: Dexamethasone Inj 20 MG/5 ML Vial IV.PUSH ONE (08:59)
--- NOTE | 2018-03-13 08:59 | P.PNNEU ---
Subjective Active Medications: Active Medications Acetaminophen (Tylenol) 650 mg PO Q4H PRN PRN Reason: Temp > 100.4 Hydrocodone Bitart/Acetaminophen ([place] 5/325) 1 tab PO Q6H [facility] Last Admin: 03/13/18 05:54 Dose: 1 tab Al Hydroxide/Mg Hydroxide (Milk Of Magnesia Liq) 30 ml PO Q12H PRN PRN Reason: Mild Constipation Bisacodyl (Dulcolax Supp) 10 mg RECTAL DAILY PRN PRN Reason: SEVERE CONSITIPATION Sodium Chloride (Ns Inj) 1,000 mls @ 70 mls/hr IV.CONT .[id number] [facility] Last Admin: 03/12/18 21:08 Dose: 70 mls/hr Lactulose (Lactulose Liq) 30 ml PO DAILY PRN PRN Reason: SEVERE CONSITIPATION Ondansetron HCl (Zofran Inj) 4 mg IV.PUSH Q6H PRN PRN Reason: NAUSEA OR VOMITING Sennosides (Senokot) 17.2 mg PO Q12H PRN PRN Reason: Moderate Constipation Sodium Chloride (Ns Flush) 2 ml IV.FLUSH PRN PRN PRN Reason: FLUSH AFTER USING IV ACCESS Last Admin: 03/12/18 08:25 Dose: 2 ml Temazepam (Restoril) 7.5 mg PO HS PRN PRN Reason: INSOMNIA Last Admin: 03/12/18 21:05 Dose: 7.5 mg Allergies/Adverse Reactions: Allergies Allergy/AdvReac Type Severity Reaction Status Date / Time No Known Allergies Allergy Verified 03/12/18 07:16 Physical Exam Vital signs: Vital Signs 03/12/18 10:38 03/12/18 13:00 03/12/18 15:16 Temperature 97.9 F 97.8 F 98.5 F Pulse Rate 96 H 86 100 H Respiratory Rate 20 16 18 Blood Pressure 162/91 H 124/77 153/79 H Pulse Oximetry 96 99 95 03/12/18 20:00 03/13/18 00:06 03/13/18 03:21 Temperature 98.7 F 98.6 F 98.6 F Pulse Rate 86 87 79 Respiratory Rate 18 18 18 Blood Pressure 105/63 111/68 115/72 Pulse Oximetry 93 L 92 L 97 03/13/18 07:53 Temperature 98.3 F Pulse Rate 86 Respiratory Rate 16 Blood Pressure 126/81 Pulse Oximetry 95 Intake & Output 03/12/18 03/13/18 03/13/18 18:59 06:59 18:59 Intake Total 1713 / 1713 240 / 240 Balance 1713 / 1713 240 / 240 Weight 81.647 kg 81.647 kg Intake: IV 1000 / 1000 NS Inj 1,000 ML @ 1000 mls/hr 1000 / 1000 IV.SIG BOLUS [facility] Rx#:[id number] Oral 713 / 713 240 / 240 Other: # Voids 3 8 Weight On Admission 81.647 kg Narrative: up walking around nad alert can walk on toes well Objective Laboratory Results - last 24 hr 03/12/18 03/12/18 03/12/18 08:15 08:15 08:15 ESR Sodium 137 Potassium 4.3 Chloride 102 Carbon Dioxide 26.4 Anion Gap 9 BUN 17 Creatinine 1.07 Estimated GFR 66 L Random Glucose 94 Lactic Acid 2.3 H Calcium 8.9 Magnesium 2.3 Total Bilirubin 0.6 AST 21 ALT 41 Alkaline Phosphatase 81 Total Creatine Kinase 83 Troponin I Less than 0.02 L C-Reactive Protein B-Natriuretic Peptide 28 Total Protein 7.6 Albumin 3.5 Vitamin B12 TSH Free T4 Urine Color Urine Clarity Urine pH Ur Specific [place] Urine Protein Urine Glucose (UA) Urine Ketones Urine Occult Blood Urine Nitrate Urine Bilirubin Urine Urobilinogen Ur Leukocyte Esterase Urine RBC Urine WBC Hyaline Casts Urine Mucus Micro UA Comment Ur Microscopic Review Urine Culture Comments Rheumatoid Factor Scrn Rheumatoid Factor Titer 03/12/18 03/12/18 03/12/18 08:15 10:00 21:24 ESR Sodium Potassium Chloride Carbon Dioxide Anion Gap BUN Creatinine Estimated GFR Random Glucose Lactic Acid Calcium Magnesium Total Bilirubin AST ALT Alkaline Phosphatase Total Creatine Kinase Troponin I C-Reactive Protein B-Natriuretic Peptide Total Protein Albumin Vitamin B12 330 TSH 1.050 Free T4 1.30 Urine Color Yellow Urine Clarity Clear Urine pH 6.0 Ur Specific [place] 1.015 Urine Protein Negative Urine Glucose (UA) Negative Urine Ketones Negative Urine Occult Blood Negative Urine Nitrate Negative Urine Bilirubin Negative Urine Urobilinogen Less than 2 Ur Leukocyte Esterase Negative Urine RBC Less than 1 Urine WBC Less than 1 Hyaline Casts 9 Urine Mucus Few H Micro UA Comment Culture not ind Ur Microscopic Review Not Reportable Urine Culture Comments Culture not ind Rheumatoid Factor Scrn Negative Rheumatoid Factor Titer Not Reportable 03/12/18 03/12/18 03/12/18 21:24 21:24 21:24 ESR 22 H Sodium Potassium Chloride Carbon Dioxide Anion Gap BUN Creatinine Estimated GFR Random Glucose Lactic Acid 1.2 Calcium Magnesium Total Bilirubin AST ALT Alkaline Phosphatase Total Creatine Kinase Troponin I C-Reactive Protein 6.70 H B-Natriuretic Peptide Total Protein Albumin Vitamin B12 TSH Free T4 Urine Color Urine Clarity Urine pH Ur Specific [place] Urine Protein Urine Glucose (UA) Urine Ketones Urine Occult Blood Urine Nitrate Urine Bilirubin Urine Urobilinogen Ur Leukocyte Esterase Urine RBC Urine WBC Hyaline Casts Urine Mucus Micro UA Comment Ur Microscopic Review Urine Culture Comments Rheumatoid Factor Scrn Rheumatoid Factor Titer Microbiology 03/12/18 08:26 Influenza Types A,B Antigen - Final Nasal Wash Negative for FLU A and B antigen Infection due to influenza A or B cannot be ruled out since the antigen present in the sample may be below the detection limit of the test. Review/Management - Review/Management Plan: imp feels a little better esr and rf nl crp inc try 10 decadron iv and then medrol dose addi and could dc as far as i am concerned he should see derm o/p
[2018-03-13] MEDS ORDERED: Famotidine 20 MG Tablet PO SCH (09:00)
[2018-03-13 09:01] LABS: Cholesterol 161 mg/dL (120-200); Triglycerides 105 mg/dL (42-150)
[2018-03-13 09:04] LABS: Chol/HDL Ratio 3.73 Ratio; HDL Cholesterol 43.1 mg/dL (40.0-60.0); LDL Cholesterol,Calculated 97 mg/dL (0-99)
--- NOTE | 2018-03-13 09:35 | P.PN ---
Subjective Interval history: Patient is seen ambulating in room. He is greatly improved from last evening. He tells me that the pain and weakness has lessened. No new complaints or concerns. He would very much like to go home today. Physical Exam Vital signs: Vital Signs 03/12/18 10:38 03/12/18 13:00 03/12/18 15:16 Temperature 97.9 F 97.8 F 98.5 F Pulse Rate 96 H 86 100 H Respiratory Rate 20 16 18 Blood Pressure 162/91 H 124/77 153/79 H Pulse Oximetry 96 99 95 03/12/18 20:00 03/13/18 00:06 03/13/18 03:21 Temperature 98.7 F 98.6 F 98.6 F Pulse Rate 86 87 79 Respiratory Rate 18 18 18 Blood Pressure 105/63 111/68 115/72 Pulse Oximetry 93 L 92 L 97 03/13/18 07:53 Temperature 98.3 F Pulse Rate 86 Respiratory Rate 16 Blood Pressure 126/81 Pulse Oximetry 95 Intake & Output 03/12/18 03/13/18 03/13/18 18:59 06:59 18:59 Intake Total 1713 / 1713 240 / 240 Balance 1713 / 1713 240 / 240 Weight 81.647 kg 81.647 kg Intake: IV 1000 / 1000 NS Inj 1,000 ML @ 1000 mls/hr 1000 / 1000 IV.SIG BOLUS MACRINA Rx#:[id number] Oral 713 / 713 240 / 240 Other: # Voids 3 8 Weight On Admission 81.647 kg Narrative: GENERAL: Well-nourished, well-developed adult male in no obvious distress. SKIN: Warm and dry. HEAD: Atraumatic. Normocephalic. CARDIOVASCULAR: Regular rate and rhythm. RESPIRATORY: No accessory muscle use. Clear to auscultation. Breath sounds equal bilaterally. GASTROINTESTINAL: Abdomen soft, non-tender, non-distended. Positive bowel sounds. MUSCULOSKELETAL: Extremities without clubbing, cyanosis, or edema. No obvious deformities. NEUROLOGICAL: Awake and alert. No obvious cranial nerve deficits. 5/5 bilateral lower extremities. 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 No tremor. normal speech. PSYCHIATRIC: Appropriate mood and affect; insight and judgment good. Results - Labs CBC & Chem 7: 03/12/18 08:15 03/12/18 08:15 Laboratory Results - last 24 hr 03/12/18 03/12/18 03/12/18 08:15 08:15 10:00 ESR Lactic Acid Total Bilirubin 0.6 Alkaline Phosphatase 81 Total Creatine Kinase 83 Troponin I Less than 0.02 L C-Reactive Protein Total Protein 7.6 Triglycerides Cholesterol LDL Cholesterol, Calc HDL Cholesterol Cholesterol/HDL Ratio Vitamin B12 330 TSH 1.050 Free T4 1.30 Urine Color Yellow Urine Clarity Clear Urine pH 6.0 Ur Specific [place] 1.015 Urine Protein Negative Urine Glucose (UA) Negative Urine Ketones Negative Urine Occult Blood Negative Urine Nitrate Negative Urine Bilirubin Negative Urine Urobilinogen Less than 2 Ur Leukocyte Esterase Negative Urine RBC Less than 1 Urine WBC Less than 1 Hyaline Casts 9 Urine Mucus Few H Micro UA Comment Culture not ind Ur Microscopic Review Not Reportable Urine Culture Comments Culture not ind Rheumatoid Factor Scrn Rheumatoid Factor Titer 03/12/18 03/12/18 03/12/18 21:24 21:24 21:24 ESR 22 H Lactic Acid Total Bilirubin Alkaline Phosphatase Total Creatine Kinase Troponin I C-Reactive Protein 6.70 H Total Protein Triglycerides Cholesterol LDL Cholesterol, Calc HDL Cholesterol Cholesterol/HDL Ratio Vitamin B12 TSH Free T4 Urine Color Urine Clarity Urine pH Ur Specific [place] Urine Protein Urine Glucose (UA) Urine Ketones Urine Occult Blood Urine Nitrate Urine Bilirubin Urine Urobilinogen Ur Leukocyte Esterase Urine RBC Urine WBC Hyaline Casts Urine Mucus Micro UA Comment Ur Microscopic Review Urine Culture Comments Rheumatoid Factor Scrn Negative Rheumatoid Factor Titer Not Reportable 03/12/18 03/13/18 21:24 07:23 ESR Lactic Acid 1.2 Total Bilirubin Alkaline Phosphatase Total Creatine Kinase Troponin I Less than 0.02 L C-Reactive Protein Total Protein Triglycerides 105 Cholesterol 161 LDL Cholesterol, Calc 97 HDL Cholesterol 43.1 Cholesterol/HDL Ratio 3.73 Vitamin B12 TSH Free T4 Urine Color Urine Clarity Urine pH Ur Specific [place] Urine Protein Urine Glucose (UA) Urine Ketones Urine Occult Blood Urine Nitrate Urine Bilirubin Urine Urobilinogen Ur Leukocyte Esterase Urine RBC Urine WBC Hyaline Casts Urine Mucus Micro UA Comment Ur Microscopic Review Urine Culture Comments Rheumatoid Factor Scrn Rheumatoid Factor Titer Microbiology 03/12/18 08:26 Nasal Wash Influenza Types A,B Antigen - Final Negative for FLU A and B antigen Infection due to influenza A or B cannot be ruled out since the antigen present in the sample may be below the detection limit of the test. - Imaging Impressions Head MRI 03/12/18 00:00 CONCLUSION: 1. No acute intracranial abnormality. 2. Mild atrophy. 3. Minimal scattered punctate areas of increased signal in the cerebral white matter likely represent small foci of demyelination. Chest X-Ray 03/12/18 07:56 CONCLUSION: No acute cardiopulmonary process. Assessment and Plan - Assessment (1) Joint pain Code(s): M25.50 - Pain in unspecified joint Status: Acute (2) Generalized weakness Code(s): R53.1 - Weakness Status: Acute - Plan Patient is an 82-year-old male with no significant past medical history. He presents to the emergency room today with a complaint of increasing weakness and generalized pain. Generalized weakness and pain with Unstable gait - improving -Labs grossly normal except for WBC 13.7; cultures pending; afebrile; flu neg -MRI brain ordered - neg -Consult neurology; appreciate assistance -suspect arthralgia versus neurological source which is supported by elevated sed rate and C-reactive protein. Recommending trial of steroids. -Patient does report some relief of pain symptoms with narcotics; will DC with 3 -day Rx. E force previously consulted. Shingles -questionable diagnosis. Symptoms appear resolved. -Stop valacyclovir -No lesions found -isolation not indicated PT recommending discharge home.
--- NOTE | 2018-03-13 09:49 | P.DS ---
Date of admission: 03/12/18 11:21 Primary care physician: No Primary Care Physician Attending physician on discharge: Emmanuel Noble Anticipated date of discharge: 03/13/18 Brief History from admission: Patient is an 82-year-old male with no significant past medical history. He presents to the emergency room today with a complaint of increasing weakness and generalized pain. He reports that he has had generalized body aches and muscle weakness for several weeks. He was seen in the emergency room 03/04/18 and diagnosed with shingles and sent home with Valtrex. Patient reports that he has been taking the medication since getting home however he has had increasing muscle pain and weakness since then. He has also tried oxycodone however it does not improve the pain. Tells me that many years ago he was put on a statin and that he had similar aches and pains which resolved after stopping the statin. He no longer takes statins as he deliberately lost over 30 pounds and improved his diet making them unnecessary. No chest pain or shortness of breath. No fever or chills. No nausea vomiting or diarrhea. He has had normal appetite. Denies any recent travel. Denies any known tick bites. No history of autoimmune disease. No falls or head injury. Prior to current weakness he had normal gait and was quite vigorous per his report. DS: Diagnosis - Discharge Diagnosis (1) Joint pain Status: Acute (2) Generalized weakness Status: Acute DS: Medications - Discharge Medications Prescriptions: hydrocodone-acetaminophen 1 tab PO Q6H #12 tab methylprednisolone See Taper PO DAILY #1 pack DS: Summary Hospital Course: Patient is an 82-year-old male with no significant past medical history. He presents to the emergency room with a complaint of increasing weakness and generalized pain. Generalized weakness and pain with Unstable gait - improving - will f/u outpatient -Labs grossly normal except for WBC 13.7; cultures pending; afebrile; flu neg -MRI brain ordered - neg -Consult neurology; appreciate assistance -suspect arthralgia versus neurological source which is supported by elevated sed rate and C-reactive protein. Recommending trial of steroids. -Patient does report some relief of pain symptoms with narcotics; will DC with 3 -day Rx. E force previously consulted. Shingles -questionable diagnosis. Symptoms appear resolved. -Stop valacyclovir -No lesions found -isolation not indicated PT recommending discharge home. - Time Spent with Patient Total time spent providing and/or coordinating discharge services: Less than 30 minutes - Quality: VTE Deep Vein Thrombosis/Pulmonary Embolism Present on Admission: No Exam Vital signs: Vital Signs 03/12/18 10:38 03/12/18 13:00 03/12/18 15:16 Temperature 97.9 F 97.8 F 98.5 F Pulse Rate 96 H 86 100 H Respiratory Rate 20 16 18 Blood Pressure 162/91 H 124/77 153/79 H Pulse Oximetry 96 99 95 03/12/18 20:00 03/13/18 00:06 03/13/18 03:21 Temperature 98.7 F 98.6 F 98.6 F Pulse Rate 86 87 79 Respiratory Rate 18 18 18 Blood Pressure 105/63 111/68 115/72 Pulse Oximetry 93 L 92 L 97 03/13/18 07:53 Temperature 98.3 F Pulse Rate 86 Respiratory Rate 16 Blood Pressure 126/81 Pulse Oximetry 95 Intake & Output 03/12/18 03/13/18 03/13/18 18:59 06:59 18:59 Intake Total 1713 / 1713 240 / 240 Balance 1713 / 1713 240 / 240 Weight 81.647 kg 81.647 kg Intake: IV 1000 / 1000 NS Inj 1,000 ML @ 1000 mls/hr 1000 / 1000 IV.SIG BOLUS MACRINA Rx#:[id number] Oral 713 / 713 240 / 240 Other: # Voids 3 8 Weight On Admission 81.647 kg Narrative: GENERAL: Well-nourished, well-developed adult male in no obvious distress. SKIN: Warm and dry. HEAD: Atraumatic. Normocephalic. CARDIOVASCULAR: Regular rate and rhythm. RESPIRATORY: No accessory muscle use. Clear to auscultation. Breath sounds equal bilaterally. GASTROINTESTINAL: Abdomen soft, non-tender, non-distended. Positive bowel sounds. MUSCULOSKELETAL: Extremities without clubbing, cyanosis, or edema. No obvious deformities. NEUROLOGICAL: Awake and alert. No obvious cranial nerve deficits. 5/5 bilateral lower extremities. 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 No tremor. normal speech. PSYCHIATRIC: Appropriate mood and affect; insight and judgment good. Results Procedures completed during hospitalization: none Labs on day of discharge: Labs from last 24 hours 03/13/18 03/12/1818 07:23 21:24 21:24 ESR Lactic Acid 1.2 Troponin I Less than 0.02 L C-Reactive Protein Triglycerides 105 Cholesterol 161 LDL Cholesterol, Calc 97 HDL Cholesterol 43.1 Cholesterol/HDL Ratio 3.73 Vitamin B12 Methylmalonic Acid TSH Free T4 Urine Color Urine Clarity Urine pH Ur Specific [place] Urine Protein Urine Glucose (UA) Urine Ketones Urine Occult Blood Urine Nitrate Urine Bilirubin Urine Urobilinogen Ur Leukocyte Esterase Urine RBC Urine WBC Hyaline Casts Urine Mucus Micro UA Comment Ur Microscopic Review Urine Culture Comments Rheumatoid Factor Scrn Rheumatoid Factor Titer LOU Screen RPR Lyme IgG (Western Blot) Pending Lyme IgG 18 kDa Band Pending Lyme IgG 23 kDa Band Pending Lyme IgG 28 kDa Band Pending Lyme IgG 30 kDa Band Pending Lyme IgG 39 kDa Band Pending Lyme IgG 41 kDa Band Pending Lyme IgG 45 kDa Band Pending Lyme IgG 58 kDa Band Pending Lyme IgG 66 kDa Band Pending Lyme IgG 93 kDa Band Pending Lyme IgM (Western Blot) Pending Lyme IgM 23 kDa Band Pending Lyme IgM 39 kDa Band Pending Lyme IgM 41 kDa Band Pending 03/12/18 03/12/18 03/12/18 21:24 21:24 21:24 ESR 22 H Lactic Acid Troponin I C-Reactive Protein 6.70 H Triglycerides Cholesterol LDL Cholesterol, Calc HDL Cholesterol Cholesterol/HDL Ratio Vitamin B12 Methylmalonic Acid Pending TSH Free T4 Urine Color Urine Clarity Urine pH Ur Specific [place] Urine Protein Urine Glucose (UA) Urine Ketones Urine Occult Blood Urine Nitrate Urine Bilirubin Urine Urobilinogen Ur Leukocyte Esterase Urine RBC Urine WBC Hyaline Casts Urine Mucus Micro UA Comment Ur Microscopic Review Urine Culture Comments Rheumatoid Factor Scrn Rheumatoid Factor Titer LOU Screen RPR Lyme IgG (Western Blot) Lyme IgG 18 kDa Band Lyme IgG 23 kDa Band Lyme IgG 28 kDa Band Lyme IgG 30 kDa Band Lyme IgG 39 kDa Band Lyme IgG 41 kDa Band Lyme IgG 45 kDa Band Lyme IgG 58 kDa Band Lyme IgG 66 kDa Band Lyme IgG 93 kDa Band Lyme IgM (Western Blot) Lyme IgM 23 kDa Band Lyme IgM 39 kDa Band Lyme IgM 41 kDa Band 03/12/18 03/12/18 03/12/18 21:24 21:24 10:00 ESR Lactic Acid Troponin I C-Reactive Protein Triglycerides Cholesterol LDL Cholesterol, Calc HDL Cholesterol Cholesterol/HDL Ratio Vitamin B12 Methylmalonic Acid TSH Free T4 Urine Color Yellow Urine Clarity Clear Urine pH 6.0 Ur Specific [place] 1.015 Urine Protein Negative Urine Glucose (UA) Negative Urine Ketones Negative Urine Occult Blood Negative Urine Nitrate Negative Urine Bilirubin Negative Urine Urobilinogen Less than 2 Ur Leukocyte Esterase Negative Urine RBC Less than 1 Urine WBC Less than 1 Hyaline Casts 9 Urine Mucus Few H Micro UA Comment Culture not ind Ur Microscopic Review Not Reportable Urine Culture Comments Culture not ind Rheumatoid Factor Scrn Negative Rheumatoid Factor Titer Not Reportable LOU Screen Pending RPR Pending [place]yme IgG (Western Blot) Lyme IgG 18 kDa Band Lyme IgG 23 kDa Band Lyme IgG 28 kDa Band Lyme IgG 30 kDa Band Lyme IgG 39 kDa Band Lyme IgG 41 kDa Band Lyme IgG 45 kDa Band Lyme IgG 58 kDa Band Lyme IgG 66 kDa Band Lyme IgG 93 kDa Band Lyme IgM (Western Blot) Lyme IgM 23 kDa Band Lyme IgM 39 kDa Band Lyme IgM 41 kDa Band 03/12/18 08:15 ESR Lactic Acid Troponin I C-Reactive Protein Triglycerides Cholesterol LDL Cholesterol, Calc HDL Cholesterol Cholesterol/HDL Ratio Vitamin B12 330 Methylmalonic Acid TSH 1.050 Free T4 1.30 Urine Color Urine Clarity Urine pH Ur Specific [place] Urine Protein Urine Glucose (UA) Urine Ketones Urine Occult Blood Urine Nitrate Urine Bilirubin Urine Urobilinogen Ur Leukocyte Esterase Urine RBC Urine WBC Hyaline Casts Urine Mucus Micro UA Comment Ur Microscopic Review Urine Culture Comments Rheumatoid Factor Scrn Rheumatoid Factor Titer LOU Screen RPR Lyme IgG (Western Blot) Lyme IgG 18 kDa Band Lyme IgG 23 kDa Band Lyme IgG 28 kDa Band Lyme IgG 30 kDa Band Lyme IgG 39 kDa Band Lyme IgG 41 kDa Band Lyme IgG 45 kDa Band Lyme IgG 58 kDa Band Lyme IgG 66 kDa Band Lyme IgG 93 kDa Band Lyme IgM (Western Blot) Lyme IgM 23 kDa Band Lyme IgM 39 kDa Band Lyme IgM 41 kDa Band - Impressions ITS Impressions Head MRI 03/12/18 00:00 CONCLUSION: 1. No acute intracranial abnormality. 2. Mild atrophy. 3. Minimal scattered punctate areas of increased signal in the cerebral white matter likely represent small foci of demyelination. Chest X-Ray 03/12/18 07:56 CONCLUSION: No acute cardiopulmonary process. Head CT 03/12/18 07:56 CONCLUSION: 1. No acute intracranial abnormality. 2. Mild atrophy. . Discharge Plan - Discharge Disposition Patient Disposition: Discharge Home - Discharge Condition Condition: Stable - Discharge Order Discharge Orders: Discharge Order (Routine); Ordered 03/13/18 Ordered By: Ethel Perez - Physicians Team Primary Care Provider: Primary Care Anne Fry Attending Provider: Emmanuel Noble Other Providers: Wesley Sidhu MD
[2018-03-13] MEDS: Sod Chloride 0.9% Inj 1,000 ML IV.CONT SCH (11:38)
[2018-03-16 11:15] LABS: Anti-Nuclear Antibody Screen Neg (Neg)
[2018-03-17 19:53] LABS: Lyme Ab 18KD IgG WB NON-REACTIVE; Lyme Ab 23KD IgG WB NON-REACTIVE; Lyme Ab 23KD IgM WB NON-REACTIVE; Lyme Ab 28KD IgG WB NON-REACTIVE; Lyme Ab 30KD IgG WB NON-REACTIVE; Lyme Ab 39KD IgG WB NON-REACTIVE; Lyme Ab 39KD IgM WB NON-REACTIVE; Lyme Ab 41KD IgG WB REACTIVE; Lyme Ab 41KD IgM WB NON-REACTIVE; Lyme Ab 45KD IgG WB NON-REACTIVE; Lyme Ab 58KD IgG WB NON-REACTIVE; Lyme Ab 66KD IgG WB NON-REACTIVE; Lyme Ab 93KD IgG WB NON-REACTIVE
== END 2018-03-13 11:15 | disposition home or self-care (01) ==
LOC: NEDA 07:00 → NEPE 07:00 → NEPHCDU 13:00
PROVIDERS: ADMIT Hospitalist; ATTEND Hospitalist